=== PATIENT | female | born 1980 | race African-American/Black ===

== ENCOUNTER 2018-12-16 20:01 | Inpatient (IN) | payer OTHER ==
[~2018-12-16] VITALS: Ht 167.6 cm; Wt 91.2 kg
[~2018-12-16 20:01] MED LIST: ABILIFY; PLAVIX
[2018-12-16] MEDS ORDERED: ASPIRIN 81MG TABLET PO ONE (21:00)
[2018-12-16 21:50] LABS: EOSINOPHILS % 1.4 % (0.0-5.0); HEMATOCRIT. 31.9 % (36.0-48.0); HEMOGLOBIN. 10.8 g/dL (12.0-16.0); LYMPHOCYTES % 43.1 % (20.0-50.0); MEAN CORPUSCULAR HEMOGLOBIN 30.8 pg (28.0-32.0); MEAN CORPUSCULAR VOLUME 91.4 fL (81.0-99.0); MEAN PLATELET VOLUME 8.3 fl (7.4-10.4); MONOCYTES % 11.4 % (2.0-8.0); NEUTROPHILS % 43.1 % (40.0-76.0); PLATELET 241 x1000/uL (130-400); RED CELL DISTRIBUTION WIDTH 15.1 % (11.6-14.6)
[2018-12-16 21:57] LABS: INR 1.1; PROTHROMBIN TIME 11.5 sec (9.6-11.0)
[2018-12-16 22:07] LABS: CHLORIDE 109 mEq/L (98-107)
[2018-12-16 23:28] LABS: HCG SCREEN NEGATIVE
[2018-12-17] MEDS ORDERED: IOHEXOL-350 100 ML BOTTLE ONE (01:50)
[2018-12-17 09:30] VITALS: BP 110/79
[2018-12-17 10:00] VITALS: BP 110/79
[2018-12-17] MEDS ORDERED: CLONIDINE 0.1MG TABLET PO PRN (12:15)
[2018-12-17] MEDS ORDERED: HYDROCODONE/ACETAMINOPHEN 5/325MG TABLET PO PRN (12:15)
[2018-12-17] MEDS ORDERED: ONDANSETRON HCL 4MG/2ML INJ IV PRN (12:15)
[2018-12-17] MEDS ORDERED: ACETAMINOPHEN 650MG SUPP PR PRN (12:15)
[2018-12-17] MEDS ORDERED: GUAIFENESIN 200MG/10ML SUGAR FREE UDC PO PRN (12:15)
[2018-12-17] MEDS ORDERED: MAGNESIUM/ALUMINUM HYDROXIDE/SIMETHICONE 30ML UDC PO PRN (12:15)
[2018-12-17] MEDS ORDERED: ACETAMINOPHEN 325MG TABLET PO PRN (12:15)
[2018-12-17] MEDS ORDERED: IPRATROPIUM/ALBUTEROL 0.5-3(2.5)MG/3ML NEB INH PRN (12:15)
[2018-12-17] MEDS ORDERED: DIPHENHYDRAMINE 50MG/ML VIAL IV PRN (12:15)
[2018-12-17] MEDS ORDERED: DOCUSATE SODIUM 100MG CAPSULE PO PRN (12:15)
[2018-12-17] MEDS ORDERED: GABA-531 MT (13:08)
[2018-12-17] MEDS ORDERED: LURA40TA MT (13:08)
[2018-12-17] MEDS ORDERED: ATOR40TA70 MT (13:08)
[2018-12-17] MEDS ORDERED: CLOP75TA33 MT (13:08)
[2018-12-17] MEDS ORDERED: LAM15 MT (13:08)
[2018-12-17] MEDS ORDERED: ASPI-1158 MT (13:08)
[2018-12-17] MEDS ORDERED: BUPR-43 MT (13:08)
[2018-12-17] MEDS ORDERED: REGADENOSON 0.4 MG/5 ML IV NR (14:30)
[2018-12-17] MEDS ORDERED: NA PHOS,M-B/NA PHOS,DI-BA ENEMA 118ML PR PRN (15:30)
[2018-12-17] MEDS ORDERED: POTASSIUM CHLORIDE 20MEQ TABLET SR PO NR (15:30)
[2018-12-17] MEDS: CLOPIDOGREL 75MG TABLET PO SCH (15:55)
[2018-12-17] MEDS: LORAZEPAM 0.5MG TABLET PO PRN (15:56)
[2018-12-17 16:00] VITALS: BP 118/73
[2018-12-17] MEDS: NICOTINE 14MG PATCH TD SCH (16:00)
[2018-12-17 16:26] LABS: HEMATOCRIT 32.7 % (36.0-48.0); HEMOGLOBIN 10.8 g/dL (12.0-16.0); MEAN CORPUSCULAR HEMOGLOBIN 30.6 pg (28.0-32.0); MEAN CORPUSCULAR VOLUME 92.3 fL (81.0-99.0); PLATELET 239 x1000/uL (130-400); RED BLOOD CELL COUNT 3.54 mill/uL (4.2-5.4); RED CELL DISTRIBUTION WIDTH 15.3 % (11.6-14.6)
[2018-12-17 16:33] LABS: CHLORIDE 108 mEq/L (98-107)
[2018-12-17 16:43] LABS: TOTAL IRON BINDING CAPACITY 289 ug/dL (250-450)
[2018-12-17 16:45] LABS: CREATINE KINASE 158 IU/L (26-192)
[2018-12-17 16:47] LABS: CREATINE KINASE MB FRACTION < 1.0 ng/mL (0.5-3.6)
[2018-12-17 20:00] VITALS: BP 107/66
[2018-12-17 22:01] LABS: CLARITY URINE CLEAR (CLEAR); COLOR URINE YELLOW (YELLOW); KETONES URINE NEGATIVE (NEGATIVE); LEUKOCYTE ESTERASE URINE NEGATIVE (NEGATIVE); NITRITE URINE NEGATIVE (NEGATIVE); OCCULT BLOOD URINE NEGATIVE (NEGATIVE); PROTEIN URINE NEGATIVE (NEGATIVE); SPECIFIC GRAVITY URINE 1.021 (1.005-1.030); UROBILINOGEN URINE 0.2 E.U./dL (0.2-1.0)
[2018-12-17 22:16] LABS: *AMPHETAMINES SCREEN URINE NEGATIVE (NEGATIVE); *BARBITURATES SCREEN URINE NEGATIVE (NEGATIVE); *BENZODIAZEPINES SCREEN URINE NEGATIVE (NEGATIVE); *COCAINE SCREEN URINE NEGATIVE (NEGATIVE); METHADONE URINE SCREEN NEGATIVE (NEGATIVE)
[2018-12-17 22:17] LABS: CANNABINOID URINE SCREEN NEGATIVE (NEGATIVE); OPIATES URINE SCREEN NEGATIVE (NEGATIVE); PHENCYCLIDINE URINE SCREEN NEGATIVE (NEGATIVE)
[2018-12-18] VITALS: BP 107/62
[2018-12-18 07:31] LABS: BASOPHILS % 0.8 % (0.0-2.0); HEMATOCRIT. 33.8 % (36.0-48.0); HEMOGLOBIN. 11.3 g/dL (12.0-16.0); LYMPHOCYTES % 40.5 % (20.0-50.0); MEAN CORPUSCULAR HEMOGLOBIN 30.8 pg (28.0-32.0); MEAN CORPUSCULAR VOLUME 91.9 fL (81.0-99.0); MEAN PLATELET VOLUME 8.6 fl (7.4-10.4); MONOCYTES % 11.5 % (2.0-8.0); NEUTROPHILS % 46.2 % (40.0-76.0); PLATELET 235 x1000/uL (130-400); RED BLOOD CELL COUNT 3.68 mill/uL (4.2-5.4); RED CELL DISTRIBUTION WIDTH 15.2 % (11.6-14.6)
[2018-12-18 08:00] VITALS: BP 105/64
[2018-12-18 08:14] LABS: CHLORIDE 109 mEq/L (98-107)
[2018-12-18 08:26] LABS: HDL CHOLESTEROL 53 mg/dL (40-59)
[2018-12-18 08:28] LABS: LDL CHOLESTEROL 48 mg/dL (5-100); T4 FREE 1.04 ng/dL (0.76-1.46)
[2018-12-18] MEDS: NICOTINE 14MG PATCH TD SCH (09:00)
[2018-12-18] MEDS ORDERED: REGADENOSON 0.4 MG/5 ML IV ONE (09:14)
[2018-12-18] MEDS: CLOPIDOGREL 75MG TABLET PO SCH (10:38)
[2018-12-18] MEDS: ASPIRIN 81MG EC TABLET PO SCH (10:38)
[2018-12-18 12:00] VITALS: BP 102/66
[2018-12-18 14:20] VITALS: BP 102/66
[2018-12-18 16:00] VITALS: BP 111/70
[2018-12-18] MEDS: LORAZEPAM 0.5MG TABLET PO PRN (18:58)
[2018-12-18 20:00] VITALS: BP 102/50
[2018-12-19] VITALS: BP 111/73
[2018-12-19 04:00] VITALS: BP 108/68
[2018-12-19 08:00] VITALS: BP 94/52
[2018-12-19] MEDS: CLOPIDOGREL 75MG TABLET PO SCH (08:34)
[2018-12-19] MEDS: LORAZEPAM 0.5MG TABLET PO PRN (08:34)
[2018-12-19] MEDS: ASPIRIN 81MG EC TABLET PO SCH (09:00)
[2018-12-19] MEDS: NICOTINE 14MG PATCH TD SCH (09:00)
[2018-12-19 12:00] VITALS: BP 104/60
== END 2018-12-19 13:40 | disposition home or self-care (01) | DRG 194 ==
LOC: ER 20:01 → 8WST 12-17 02:25 → EDBEDREQTM 12-17 02:28 → EDBEDREQ 12-17 02:28 → ENRESERV 12-17 07:11
PROVIDERS: ADMIT Ophthalmology; ATTEND Ophthalmology
DX: I11.0 Hypertensive heart disease with heart failure (principal); D68.59 Other primary thrombophilia; E86.0 Dehydration; E83.51 Hypocalcemia; F20.9 Schizophrenia, unspecified; I69.354 Hemiplegia and hemiparesis following cerebral infarction affecting left non-dominant side; K76.0 Fatty (change of) liver, not elsewhere classified; R07.89 Other chest pain; I50.33 Acute on chronic diastolic (congestive) heart failure; D64.9 Anemia, unspecified; E78.5 Hyperlipidemia, unspecified; E11.9 Type 2 diabetes mellitus without complications; F17.210 Nicotine dependence, cigarettes, uncomplicated; J45.909 Unspecified asthma, uncomplicated; Z82.49 Family history of ischemic heart disease and other diseases of the circulatory system; Z59.0 Homelessness; Z79.02 Long term (current) use of antithrombotics/antiplatelets; Z79.84 Long term (current) use of oral hypoglycemic drugs
CPT/HCPCS: 36415; 71045; 71275; 78452; 80048; 80061; 80305; 82550; 82553; 82962; 83540; 83550; 83735; 83880; 84439; 84443; 84484; 84703; 85027; 85379; 93005; 93017; 93306; 93970; 97161; 99285; A9500; J2785; Q9967

== ENCOUNTER 2019-01-12 15:04 | Inpatient (IN) | payer OTHER ==
[~2019-01-12] VITALS: Ht 167.6 cm; Wt 90.3 kg
[~2019-01-12 15:04] MED LIST changes: +ASPI-1158 MT; +ATOR40TA70 MT; +BUPR-43 MT; +CLOP75TA33 MT; +GABA-531 MT; +LAM15 MT; +LURA40TA MT
[2019-01-12] MEDS ORDERED: ASPIRIN 81MG TABLET PO ONE (19:15)
[2019-01-12] MEDS ORDERED: NITROGLYCERIN 0.4MG TABLET SL SL PRN (19:15)
[2019-01-12 19:32] LABS: BASOPHILS % 0.7 % (0.0-2.0); EOSINOPHILS % 0.9 % (0.0-5.0); HEMOGLOBIN. 11.2 g/dL (12.0-16.0); LYMPHOCYTES % 36.1 % (20.0-50.0); MEAN CORPUSCULAR VOLUME 90.7 fL (81.0-99.0); MEAN PLATELET VOLUME 8.4 fl (7.4-10.4); MONOCYTES % 12.7 % (2.0-8.0); NEUTROPHILS % 49.6 % (40.0-76.0); PLATELET 207 x1000/uL (130-400); RED BLOOD CELL COUNT 3.75 mill/uL (4.2-5.4); RED CELL DISTRIBUTION WIDTH 15.1 % (11.6-14.6)
[2019-01-12 19:38] LABS: CHLORIDE 108 mEq/L (98-107)
[2019-01-12 19:42] LABS: ETHANOL BLOOD < 10 mg/dL
[2019-01-12 19:49] LABS: HCG SCREEN NEGATIVE
[2019-01-12 19:58] LABS: METHADONE URINE SCREEN NEGATIVE (NEGATIVE); OPIATES URINE SCREEN NEGATIVE (NEGATIVE)
[2019-01-12 19:59] LABS: *AMPHETAMINES SCREEN URINE NEGATIVE (NEGATIVE); *BARBITURATES SCREEN URINE NEGATIVE (NEGATIVE); *BENZODIAZEPINES SCREEN URINE NEGATIVE (NEGATIVE); *COCAINE SCREEN URINE NEGATIVE (NEGATIVE); CANNABINOID URINE SCREEN NEGATIVE (NEGATIVE); PHENCYCLIDINE URINE SCREEN NEGATIVE (NEGATIVE)
[2019-01-13 04:44] VITALS: BP 113/73
[2019-01-13] MEDS ORDERED: GABA-529 PO (04:49)
[2019-01-13 04:50] VITALS: BP 113/73
[2019-01-13] MEDS ORDERED: LAMO25TA9 MT (04:50)
[2019-01-13] MEDS ORDERED: LURA40TA MT (04:50)
[2019-01-13] MEDS ORDERED: ACETAMINOPHEN 325MG TABLET PO PRN (05:45)
[2019-01-13 08:00] VITALS: BP 103/52
[2019-01-13] MEDS: CLOPIDOGREL 75MG TABLET PO SCH (08:47)
[2019-01-13] MEDS: LAMOTRIGINE 25MG TABLET PO SCH (08:47)
[2019-01-13] MEDS: ENOXAPARIN 30MG/0.3ML SYR SUBCUT SCH ×2 (08:47→21:55)
[2019-01-13] MEDS: BUPROPION HCL 150MG TABLET XL 24HR PO SCH (08:47)
[2019-01-13] MEDS: ASPIRIN 81MG EC TABLET PO SCH (08:54)
[2019-01-13] MEDS ORDERED: MEDICATION NOT ON FORMULARY EA (Clopidogrel Bisulfate (Clopidogrel) 1 TAB) MT SCH (09:00)
[2019-01-13] MEDS ORDERED: MEDICATION NOT ON FORMULARY EA (Aspirin (Aspirin Ec) 1 TAB) MT SCH (09:00)
[2019-01-13] MEDS ORDERED: MEDICATION NOT ON FORMULARY EA (Bupropion Hcl (Bupropion Xl) 1 TAB) MT SCH (09:00)
[2019-01-13] MEDS ORDERED: ENOXAPARIN 40MG/0.4ML SYR SUBCUT SCH (09:00)
[2019-01-13 09:58] LABS: CREATINE KINASE 216 IU/L (26-192); CREATINE KINASE MB FRACTION 1.4 ng/mL (0.5-3.6)
[2019-01-13 12:00] VITALS: BP 126/68
[2019-01-13 16:00] VITALS: BP 102/57
[2019-01-13 16:44] LABS: CREATINE KINASE 203 IU/L (26-192)
[2019-01-13 20:00] VITALS: BP 109/66
[2019-01-13] MEDS: ATORVASTATIN CALCIUM 40MG TABLET PO SCH (21:55)
[2019-01-13] MEDS: LURASIDONE HCL 40 MG PO SCH (21:55)
[2019-01-13 23:11] LABS: CREATINE KINASE 208 IU/L (26-192)
[2019-01-13 23:12] LABS: CREATINE KINASE MB FRACTION 1.3 ng/mL (0.5-3.6)
[2019-01-14] VITALS: BP 111/68
[2019-01-14 04:00] VITALS: BP 110/65
[2019-01-14 06:41] LABS: BASOPHILS % 0.9 % (0.0-2.0); EOSINOPHILS % 0.8 % (0.0-5.0); HEMATOCRIT. 33.6 % (36.0-48.0); HEMOGLOBIN. 11.3 g/dL (12.0-16.0); LYMPHOCYTES % 46.9 % (20.0-50.0); MEAN CORPUSCULAR HEMOGLOBIN 30.6 pg (28.0-32.0); MEAN PLATELET VOLUME 9.1 fl (7.4-10.4); MONOCYTES % 12.9 % (2.0-8.0); NEUTROPHILS % 38.5 % (40.0-76.0); PLATELET 192 x1000/uL (130-400); RED CELL DISTRIBUTION WIDTH 15.2 % (11.6-14.6)
[2019-01-14 07:12] LABS: CHLORIDE 107 mEq/L (98-107)
[2019-01-14 08:00] VITALS: BP 101/71
[2019-01-14] MEDS: ASPIRIN 81MG EC TABLET PO SCH (09:21)
[2019-01-14] MEDS: CLOPIDOGREL 75MG TABLET PO SCH (09:21)
[2019-01-14] MEDS: ENOXAPARIN 30MG/0.3ML SYR SUBCUT SCH ×2 (09:21→20:42)
[2019-01-14] MEDS: BUPROPION HCL 150MG TABLET XL 24HR PO SCH (09:21)
[2019-01-14] MEDS: LAMOTRIGINE 25MG TABLET PO SCH (09:21)
[2019-01-14 12:00] VITALS: BP 111/71
[2019-01-14 16:00] VITALS: BP 122/66
[2019-01-14 20:00] VITALS: BP 107/58
[2019-01-14] MEDS: LURASIDONE HCL 40 MG PO SCH (20:40)
[2019-01-14] MEDS: ATORVASTATIN CALCIUM 40MG TABLET PO SCH (20:40)
[2019-01-15] VITALS: BP 105/63
[2019-01-15 04:00] VITALS: BP 102/58
[2019-01-15 07:30] VITALS: BP 102/55
[2019-01-15 08:50] VITALS: BP 102/55
[2019-01-15] MEDS: CLOPIDOGREL 75MG TABLET PO SCH (08:50)
[2019-01-15] MEDS: ASPIRIN 81MG EC TABLET PO SCH (08:50)
[2019-01-15] MEDS: BUPROPION HCL 150MG TABLET XL 24HR PO SCH (08:50)
[2019-01-15] MEDS: LAMOTRIGINE 25MG TABLET PO SCH (08:50)
[2019-01-15] MEDS: ENOXAPARIN 30MG/0.3ML SYR SUBCUT SCH (08:51)
== END 2019-01-15 10:44 | disposition home or self-care (01) | DRG 203 ==
LOC: ER 15:04 → 5WST 01-13 02:57 → EDBEDREQ 01-13 03:01 → EDBEDREQTM 01-13 03:01 → ENRESERV 01-13 03:11 → 5WST 01-13 05:44
PROVIDERS: ADMIT Internal Medicine; ATTEND Internal Medicine
DX: M94.0 Chondrocostal junction syndrome [Tietze] (principal); I50.33 Acute on chronic diastolic (congestive) heart failure; E87.8 Other disorders of electrolyte and fluid balance, not elsewhere classified; D68.59 Other primary thrombophilia; E44.1 Mild protein-calorie malnutrition; F25.9 Schizoaffective disorder, unspecified; I11.0 Hypertensive heart disease with heart failure; I69.354 Hemiplegia and hemiparesis following cerebral infarction affecting left non-dominant side; D64.9 Anemia, unspecified; E78.5 Hyperlipidemia, unspecified; F17.210 Nicotine dependence, cigarettes, uncomplicated; Z91.14 Patient's other noncompliance with medication regimen; Z79.899 Other long term (current) drug therapy; Z79.02 Long term (current) use of antithrombotics/antiplatelets; Z59.0 Homelessness; Z91.19 Patient's noncompliance with other medical treatment and regimen; Z79.82 Long term (current) use of aspirin; Z68.32 Body mass index [BMI] 32.0-32.9, adult
CPT/HCPCS: 36415; 71045; 80048; 80305; 80320; 82550; 82553; 83880; 84484; 84703; 93005; 96374; 99285; J1650; G0480